=== PATIENT | female | born 1980 | race Caucasian/White ===

== ENCOUNTER 2017-06-29 13:08 | Emergency (ER) | payer SELFPAY ==
[~2017-06-29] VITALS: Ht 170.2 cm; Wt 106.3 kg
--- NOTE | 2017-06-29 13:24 | PHYS DOC ---
Past Medical History Past Medical History: No Pertinent History Past Surgical History: Cholecystectomy, Tubal ligation Additional Past Surgical Histo: bladder surgery Alcohol Use: None Drug Use: None Adult General Chief Complaint Chief Complaint: OTHER COMPLAINTS HPI HPI Patient is a 36 year old female who presents with numbness and tingling in her bilateral hands and feet in addition to some parts of her tongue and nose. She states he symptoms been going on for 2 weeks. She also states that occasionally after she stands up she feels lightheaded. She denies any falls, any focal weakness, nausea vomiting. She does state she has a toothache in the right lower jaw that's been there for about 2 weeks and she is waiting to afford enough money to go with the dizziness. She states she hasn't seen a doctor since 2014 when she has her tubes tied. She does not have a primary care physician. She does smoke a pack per day she's done that for the last 10 years or so. She denies alcohol use and any drug use. Review of Systems Review of Systems Constitutional: Denies fever or chills [] Eyes: Denies change in visual acuity, redness, or eye pain [] HENT: Denies nasal congestion or sore throat [] Respiratory: Denies cough or shortness of breath [] Cardiovascular: No additional information not addressed in HPI [] GI: Denies abdominal pain, nausea, vomiting, bloody stools or diarrhea [] : Denies dysuria or hematuria [] Musculoskeletal: Denies back pain or joint pain [] Integument: Denies rash or skin lesions [] Neurologic: Denies headache, focal weakness, positive for hand and feet numbness Endocrine: Denies polyuria or polydipsia [] Allergies Allergies Allergies Coded Allergies Type Severity Reaction Last Updated Verified Sulfa (Sulfonamide Antibiotics) Allergy Intermediate 09/13/14 Yes Physical Exam Physical Exam Constitutional: Well developed, well nourished, no acute distress, non-toxic appearance. [] HENT: Normocephalic, atraumatic, bilateral external ears normal, oropharynx moist, no oral exudates, nose normal. No trismus noted, multiple dental caries with some tenderness on the apical site of tooth #30 Eyes: PERRLA, EOMI, conjunctiva normal, no discharge. [] Neck: Normal range of motion, no tenderness, supple, no stridor. [] Cardiovascular:Heart rate regular rhythm, no murmur [] Lungs & Thorax: Bilateral breath sounds clear to auscultation [] Abdomen: Bowel sounds normal, soft, no tenderness, no masses, no pulsatile masses. [] Skin: Warm, dry, no erythema, no rash. [] Back: No tenderness, no CVA tenderness. [] Extremities: No tenderness, no cyanosis, no clubbing, ROM intact, no edema. [] Neurologic: Alert and oriented X 3, normal motor function, no focal deficits noted. Subjective numbness on the tips of the fingers and toes on bilateral hands and feet, tip of her tongue and the under side of her nose. Psychologic: Affect normal, judgement normal, mood normal. [] Current Patient Data Vital Signs Vital Signs Date Time Temp Pulse Resp B/P (MAP) Pulse Ox O2 Delivery O2 Flow Rate FiO2 06/29/17 14:30 88 12 113/78 (90) 97 Room Air 06/29/17 13:30 98.2 98.2 Lab Values Laboratory Tests Test 06/29/17 14:15 White Blood Count 9.8 x10^3/uL (4.0-11.0) Red Blood Count 4.85 x10^6/uL (3.50-5.40) Hemoglobin 14.8 g/dL (12.0-15.5) Hematocrit 44.0 % (36.0-47.0) Mean Corpuscular Volume 91 fL (79-100) Mean Corpuscular Hemoglobin 31 pg (25-35) Mean Corpuscular Hemoglobin Concent 34 g/dL (31-37) Red Cell Distribution Width 14.5 % (11.5-14.5) Platelet Count 234 x10^3/uL (140-400) Neutrophils (%) (Auto) 68 % (31-73) Lymphocytes (%) (Auto) 25 % (24-48) Monocytes (%) (Auto) 5 % (0-9) Eosinophils (%) (Auto) 2 % (0-3) Basophils (%) (Auto) 1 % (0-3) Neutrophils # (Auto) 6.6 x10^3uL (1.8-7.7) Lymphocytes # (Auto) 2.4 x10^3/uL (1.0-4.8) Monocytes # (Auto) 0.5 x10^3/uL (0.0-1.1) Eosinophils # (Auto) 0.2 x10^3/uL (0.0-0.7) Basophils # (Auto) 0.1 x10^3/uL (0.0-0.2) Urine Color Yellow Urine Clarity Clear Urine pH 5.5 Urine Specific [place] 1.020 Urine Protein Negative mg/dL (NEG-TRACE) Urine Glucose (UA) Negative mg/dL (NEG) Urine Ketones (Stick) Negative mg/dL (NEG) Urine Blood Negative (NEG) Urine Nitrite Negative (NEG) Urine Bilirubin Negative (NEG) Urine Urobilinogen Dipstick 0.2 mg/dL (0.2 mg/dL) Urine Leukocyte Esterase Negative (NEG) Urine RBC 0 /HPF (0-2) Urine WBC Occ /HPF (0-4) Urine Squamous Epithelial Cells Occ /LPF Urine Bacteria 0 /HPF (0-FEW) Urine Mucus Mod /LPF Sodium Level 137 mmol/L (136-145) Potassium Level 4.1 mmol/L (3.5-5.1) Chloride Level 105 mmol/L (98-107) Carbon Dioxide Level 26 mmol/L (21-32) Anion Gap 6 (6-14) Blood Urea Nitrogen 5 mg/dL (7-20) L Creatinine 0.6 mg/dL (0.6-1.0) Estimated GFR (Cockcroft-Gault) 114.4 Glucose Level 91 mg/dL (70-99) Calcium Level 9.2 mg/dL (8.5-10.1) Phosphorus Level 3.0 mg/dL (2.6-4.7) Magnesium Level 1.7 mg/dL (1.8-2.4) L Vitamin B12 Level 294 pg/mL (247-911) Serum Folate 6.49 ng/ml (3.2-20.0) Serum Test, Qualitative Negative (NEG) Laboratory Tests 06/29/17 14:15 Laboratory Tests 06/29/17 14:15 EKG EKG [] Radiology/Procedures Radiology/Procedures [facility] [address] [place], [place] [id number] IMAGING REPORT Signed PATIENT: SHERRELL CLARK ACCOUNT: [id number] : 1980 LOCATION: ER AGE: 36 SEX: F EXAM STATUS: REG ER ORD. PHYSICIAN: MARTA VELAZQUEZ MD REASON: bilateral hand and foot, with nose numbness PROCEDURE: CT HEAD WO CONTRAST CT head without contrast History: Bilateral hand, foot and nose numbness. Comparison: None. Procedure: Axial images are obtained of the head from the skull base through the vertex without IV contrast. Findings: The ventricles and sulci are normal for the patient's age. No mass-effect, intracranial mass, midline shift, hemorrhage or obvious acute infarction is identified. Basilar cisterns are patent. Bone windows demonstrate no significant calvarial abnormality. Small mucous changes cyst or polyp identified in the left sphenoid sinus.. Impression: 1. No acute intracranial process. PQRS Compliance Statement: One or more of the following individualized dose reduction techniques were utilized for this examination: 1. Automated exposure control 2. Adjustment of the mA and/or kV according to patient size 3. Use of iterative reconstruction technique DICTATED and SIGNED BY: ARELY HOLDEN MD DATE: 06/29/171401 CC: MARTA VELAZQUEZ MD; NO PCP ~ Impressions: neuropathy Dental pain Course & Med Decision Making Course & Med Decision Making Pertinent Labs and Imaging studies reviewed. (See chart for details) She had do not show any acute abnormality's. Labs including folic acid and B12 are nonacute. She's being discharged with Pen-Vee K for the next 7 days for her dental caries and a follow-up with neurology for her numbness. She is agreeable plan being discharged in stable condition this time. Dragon Disclaimer Dragon Disclaimer This electronic medical record was generated, in whole or in part, using a voice recognition dictation system. Departure Departure Impression: Primary Impression: Pain, dental Additional Impression: Peripheral neuropathy Disposition: 01 HOME, SELF-CARE Condition: STABLE Referrals: NO PCP (PCP) Patient Instructions: Dental Pain, [id number] Additional Instructions: You were seen today for the numbness of your fingers and toes. I do not see any reasons for this to be occurring and therefore you will need to follow-up with a neurologist. Please call Dr. Banegas's office and schedule follow-up appointment. He also being treated for your dental pain. He taken a bike's as directed for the next 7 days. You will need to follow-up with a dentist GREG[place]IA. Return ER if you have troubles swallowing, talking, you have high fevers or other concerns. Scripts Penicillin V Potassium (PENICILLIN V POTASSIUM) 500 Mg Tablet 1 TAB PO QID, #28 TAB Prov: MARTA VELAZQUEZ MD 06/29/17 Problem Qualifiers MARTA VELAZQUEZ MD Jun 29, 2017 13:24
--- NOTE | 2017-06-29 14:08 | RAD ---
CT head without contrast History: Bilateral hand, foot and nose numbness. Comparison: None. Procedure: Axial images are obtained of the head from the skull base through the vertex without IV contrast. Findings: The ventricles and sulci are normal for the patient's age. No mass-effect, intracranial mass, midline shift, hemorrhage or obvious acute infarction is identified. Basilar cisterns are patent. Bone windows demonstrate no significant calvarial abnormality. Small mucous changes cyst or polyp identified in the left sphenoid sinus.. Impression: 1. No acute intracranial process. PQRS Compliance Statement: One or more of the following individualized dose reduction techniques were utilized for this examination: 1. Automated exposure control 2. Adjustment of the mA and/or kV according to patient size 3. Use of iterative reconstruction technique
[2017-06-29 14:26] LABS: BASO # 0.1 x10^3/uL (0.0-0.2); BASO % 1 % (0-3); EOS % 2 % (0-3); HEMOGLOBIN 14.8 g/dL (12.0-15.5); LYMPH # 2.4 x10^3/uL (1.0-4.8); LYMPH % 25 % (24-48); MEAN CORPUSCULAR HEMOGLOBIN 31 pg (25-35); MEAN CORPUSCULAR HGB CONC 34 g/dL (31-37); MEAN CORPUSCULAR VOLUME 91 fL (79-100); MONO % 5 % (0-9); NEUT % 68 % (31-73); PLATELET COUNT 234 x10^3/uL (140-400); RED BLOOD COUNT 4.85 x10^6/uL (3.50-5.40); RED CELL DISTRIBUTION WIDTH 14.5 % (11.5-14.5); WHITE BLOOD COUNT 9.8 x10^3/uL (4.0-11.0)
[2017-06-29 14:28] LABS: BILIRUBIN,URINE NEGATIVE (NEG); GLUCOSE,URINE NEGATIVE (NEG); NITRITE,URINE NEGATIVE (NEG); PH,URINE 5.5; PROTEIN,URINE NEGATIVE (NEG-TRACE); UROBILINOGEN,URINE 0.2 mg/dL (0.2 mg/dL)
[2017-06-29 14:36] LABS: CALCIUM 9.2 mg/dL (8.5-10.1); CREATININE 0.6 mg/dL (0.6-1.0); GFR 114.4; POTASSIUM 4.1 mmol/L (3.5-5.1)
[2017-06-29 14:38] LABS: NEG OBC SER NEG; POS OBC SER POS
[2017-06-29 14:40] LABS: MAGNESIUM 1.7 mg/dL (1.8-2.4)
[2017-06-29 14:41] LABS: BACTERIA,URINE 0 /HPF (0-FEW); RBC,URINE 0 /HPF (0-2); WBC,URINE OCC /HPF (0-4)
[2017-06-29 14:42] LABS: SQUAMOUS EPITHELIAL CELL,UR OCC /LPF
[2017-06-29 14:53] LABS: FOLATE 6.49 ng/ml (3.2-20.0)
[2017-06-29 15:15] VITALS: BP 122/72
[2017-06-29] MEDS ORDERED: PENI500T PO (15:30)
== END 2017-06-29 15:35 | disposition home or self-care (01) ==
LOC: ER 13:08
DX: K02.9 Dental caries, unspecified (principal); G62.9 Polyneuropathy, unspecified; F17.200 Nicotine dependence, unspecified, uncomplicated; Z88.2 Allergy status to sulfonamides
CPT/HCPCS: 36415; 70450; 80048; 81001; 82607; 82746; 83735; 84100; 84703; 85025; 99285-25

== ENCOUNTER 2017-07-08 06:24 | Emergency (ER) | payer SELFPAY ==
[~2017-07-08 06:24] MED LIST: PENI500T PO
[2017-07-08 06:41] VITALS: BP 152/100
[2017-07-08] MEDS ORDERED: HYDR-2758 PO (07:00)
[2017-07-08] MEDS ORDERED: HYDROcodone/APAP 5/325MG 1 TAB TABLET PO ONE (07:00)
--- NOTE | 2017-07-08 07:00 | PHYS DOC ---
Past Medical History Past Medical History: Anxiety Past Surgical History: Cholecystectomy, Tubal ligation Additional Past Surgical Histo: bladder surgery Alcohol Use: None Drug Use: None Adult General Chief Complaint Chief Complaint: DENTAL PROBLEM HPI HPI 36-year-old female presenting to the emergency department today with pain in her tooth that is on the right back bottom tooth. It is moderate. Nonradiating sharp intermittent and without alleviating factors. She reports not taking ibuprofen or Tylenol previously. Otherwise she denies any tongue swelling drooling. She denies stridor. Review of systems is negative for fevers chills chest pain cough shortness of breath. All other review of systems is negative unless otherwise noted in history of present illness. ED course: 36-year-old female presenting to the emergency department today with dental pain. Patient is currently on penicillin. I recommended ibuprofen and Tylenol. I gave the patient oral Lortab in the emergency department to follow- up with the dentist in the next 2-3 days. Review of Systems Review of Systems SEE ABOVE. Current Medications Current Medications Current Medications Medications (Trade) Dose Ordered Sig/Xochitl Start Time Stop Time Status Last Admin Dose Admin Acetaminophen/ Hydrocodone Bitart (Lortab 5/325) 2 tab 1X ONCE 07/08/17 07:00 07/08/17 07:01 Allergies Allergies Allergies Coded Allergies Type Severity Reaction Last Updated Verified Sulfa (Sulfonamide Antibiotics) Allergy Intermediate 09/13/14 Yes Physical Exam Physical Exam SEE ABOVE Constitutional: Well developed, well nourished, no acute distress, non-toxic appearance. [] HENT: Normocephalic, atraumatic, bilateral external ears normal, oropharynx moist, no oral exudates, nose normal. [] Eyes: PERRLA, EOMI, conjunctiva normal, no discharge. Neck: Normal range of motion, no tenderness, supple, no stridor. [] Cardiovascular:Heart rate regular rhythm, no murmur [] Lungs & Thorax: Bilateral breath sounds clear to auscultation Abdomen: Bowel sounds normal, soft, no tenderness, no masses, no pulsatile masses. [] Skin: Warm, dry, no erythema, no rash. [] Back: No tenderness, no CVA tenderness. Extremities: No tenderness, no cyanosis, no clubbing, ROM intact, no edema. [] Neurologic: Alert and oriented X 3, normal motor function, normal sensory function, no focal deficits noted. Psychologic: Affect normal, judgement normal, mood normal. [] Current Patient Data Vital Signs Vital Signs Date Time Temp Pulse Resp B/P (MAP) Pulse Ox O2 Delivery O2 Flow Rate FiO2 07/08/17 06:41 99.0 110 20 98 Room Air 99.0 EKG EKG [] Radiology/Procedures Radiology/Procedures [] Course & Med Decision Making Course & Med Decision Making Pertinent Labs and Imaging studies reviewed. (See chart for details) [] Dragon Disclaimer Dragon Disclaimer This electronic medical record was generated, in whole or in part, using a voice recognition dictation system. Departure Departure Impression: Primary Impression: Pain, dental Disposition: HOME, SELF-CARE Condition: STABLE Referrals: NO PCP (PCP) Patient Instructions: Dental Pain Additional Instructions: Thank you for allowing us to participate in your care today. Followup with your dentist in 2-3 days. Call your Primary Doctor tomorrow and inform them of your visit today. If you do not have a primary care provider you can ask for a list of our primary care providers. Return to the emergency department you have any new or concerning findings. This should be evaluated by the primary care physician and any necessary consulting services for continued management within a few days after discharge. Return to emergency room if you have any new or concerning symptoms including but not limited to fever, chills, nausea, vomiting, intractable pain, any new rashes, chest pain, shortness of air, uncontrolled bleeding, difficulty breathing, and/or vision loss. You may have been prescribed medication that can change in your level of thinking and ability to operate machinery. These medications include hydrocodone and Ativan. Also, Benadryl has been known to do this as well. Be sure to check with your pharmacist and ask if the medications you've prescribed can affect your level of consciousness. I recommend not operating heavy machinery or driving while on medication such as these. Scripts Hydrocodone Bit/Acetaminophen (HYDROCODONE-APAP 5-325 ) 1 Each Tablet 1 TAB PO PRN Q6HRS Y for PAIN, #15 TAB 0 Refills Be careful as this medication may cause you to be drowsy or tired. Do not drive on this medication. Prov: LATA RODRIGUEZ MD 07/08/17 LATA RODRIGUEZ MD Jul 08, 2017 07:00
== END 2017-07-08 07:08 | disposition home or self-care (01) ==
LOC: ER 06:24
DX: K08.89 Other specified disorders of teeth and supporting structures (principal); F41.9 Anxiety disorder, unspecified; Z88.2 Allergy status to sulfonamides; Z90.49 Acquired absence of other specified parts of digestive tract
CPT/HCPCS: 99283

== ENCOUNTER 2019-09-03 20:33 | Emergency (ER) | payer SELFPAY ==
[~2019-09-03] VITALS: Ht 170.2 cm; Wt 106.1 kg
[~2019-09-03 20:33] MED LIST changes: +HYDR-2761 PO
[2019-09-03 21:00] VITALS: BP 127/85
[2019-09-03] MEDS ORDERED: AMOX875T PO (21:44)
--- NOTE | 2019-09-03 21:45 | PHYS DOC ---
Past Medical History Past Medical History: Anxiety (LEANNA POOLE APRN) Past Surgical History: Cholecystectomy, Tubal ligation, Other Additional Past Surgical Histo: BLADDER SURGERY (LEANNA POOLE APRN) Alcohol Use: None Drug Use: None (LEANNA POOLE APRN) Attending Signature I have participated in the care of this patient and I have reviewed and agree with all pertinent clinical information above including history, exam, and recommendations. (SHANNON MURRY MD) Adult General Chief Complaint Chief Complaint: EARACHE/EAR PAIN HPI HPI Patient is a 39 year old female who presents to the emergency department with complaints of left ear pain, decreased hearing, and ringing in her left ear the last 4 days. Patient also complains of a sore throat, nasal congestion, and frequent throat clearing. She reports that she has had a dry cough recently. Patient denies any fever, shortness of breath, chest pain, palpitations, headache, nausea, vomiting, diarrhea, abdominal pain, body aches, or fatigue. She states she smokes about a pack of cigarettes a day. Currently, she rates her discomfort a 7 out of 10 on the pain scale, there are no alleviating factors, her sore throat increases with swallowing. Patient denies any difficulty swallowing fluids or stridor. All other ROS is neg unless otherwise noted in HPI. (LEANNA POOLE APRN) Review of Systems Review of Systems See Above (LEANNA POOLE APRN) Allergies Allergies Allergies Coded Allergies Type Severity Reaction Last Updated Verified Sulfa (Sulfonamide Antibiotics) Allergy Intermediate 09/13/14 Yes (SHANNON MURRY MD) Physical Exam Physical Exam See Above Constitutional: Well developed, well nourished, no acute distress, non-toxic appearance. [] HENT: Normocephalic, atraumatic, bilateral external ears normal, left TM appears infected use erythema and no perforation, right TM normal, cobblestone appearance of posterior pharynx, oropharynx moist, no oral exudates, nose congested Eyes: PERRLA, EOMI, conjunctiva normal, no discharge. [] Neck: Normal range of motion, no tenderness, supple, no stridor. [] Cardiovascular:Heart rate regular rhythm, no murmur [] Lungs & Thorax: Bilateral breath sounds clear to auscultation [] Skin: Warm, dry, no erythema, no rash. [] Back: No tenderness Extremities: No cyanosis, ROM intact, no edema. [] Neurologic: Alert and oriented X 3, no focal deficits noted. [] Psychologic: Affect normal, judgement normal, mood normal. [] (LEANNA POOLE APRN) Current Patient Data Vital Signs Vital Signs Date Time Temp Pulse Resp B/P (MAP) Pulse Ox O2 Delivery O2 Flow Rate FiO2 09/03/19 21:00 98.1 97 16 127/85 (99) 97 Room Air 98.1 (SHANNON MURRY MD) EKG EKG [] (LEANNA POOLE APRN) Radiology/Procedures Radiology/Procedures [] (LEANNA POOLE APRN) Course & Med Decision Making Course & Med Decision Making Pertinent Labs and Imaging studies reviewed. (See chart for details) [] (LEANNA POOLE APRN) Dragon Disclaimer Dragon Disclaimer This electronic medical record was generated, in whole or in part, using a voice recognition dictation system. (LEANNA POOLE APRN) Departure Departure Impression: Primary Impression: Left otitis media with effusion Additional Impression: URI (upper respiratory infection) Disposition: 01 HOME, SELF-CARE Condition: STABLE Referrals: NO PCP (PCP) Patient Instructions: Otitis Media, Adult Additional Instructions: Fill prescription(s) and use as directed. Recommend use of a Cool mist humidifier in room at bedtime. Alternate Tylenol or ibuprofen as needed for pain/fever. Increase clear fluids. Avoid airway triggers such as smoke, fragrance, dust, and pollen. May take [id number] cough suppressants as needed. Follow-up with your primary care doctor in 1-2 days, return to the ER if symptoms worsen. Scripts Amoxicillin (AMOXICILLIN) 875 Mg Tablet 1 TAB PO BID, #20 TAB 0 Refills Prov: LEANNA POOLE APRN 09/03/19 Problem Qualifiers Additional Impression: URI (upper respiratory infection) URI type: unspecified URI Qualified Codes: J06.9 - Acute upper respiratory infection, unspecified LEANNA POOLE APRN Sep 03, 2019 21:45 SHANNON MURRY MD Sep 04, 2019 03:57
== END 2019-09-03 22:03 | disposition home or self-care (01) ==
LOC: ER 20:33
DX: H65.92 Unspecified nonsuppurative otitis media, left ear (principal); J06.9 Acute upper respiratory infection, unspecified; F41.9 Anxiety disorder, unspecified; Z90.49 Acquired absence of other specified parts of digestive tract; Z98.51 Tubal ligation status; Z98.890 Other specified postprocedural states; Z88.2 Allergy status to sulfonamides
CPT/HCPCS: 99283

== ENCOUNTER 2020-01-23 03:26 | Emergency (ER) | payer SELFPAY ==
[~2020-01-23] VITALS: Ht 170.2 cm; Wt 104.6 kg
[~2020-01-23 03:26] MED LIST changes: +AMOX875T PO
[2020-01-23] MEDS ORDERED: LORazepam 0.5 MG TABLET PO ONE (04:15)
--- NOTE | 2020-01-23 04:26 | PHYS DOC ---
Past Medical History Past Medical History: Anxiety Past Surgical History: Cholecystectomy, Tubal ligation, Other Additional Past Surgical Histo: BLADDER SURGERY Smoking Status: Current Every Day Smoker Alcohol Use: None Drug Use: None General Adult EDM: Chief Complaint: ANXIETY/PANIC ATTACK HPI: HPI: Patient is a 39 year old [f__sex] who presents with [] Patient is a 39-year-old female with history of anxiety who reports frequent panic attacks and increased background anxiety due to Coronavirus pandemic presents with acute panic episode. Patient states she was having sexual intercourse she became short of breath than anxious that her shortness breath may be related to the coronavirus precipitating greater panic attack. Patient states she tried calming herself and usually her usual techniques which were unsuccessful. Symptom onset was 2 hours ago. Reports chest tightness, sharp pain in her right rib cage. No fever chills, nausea vomiting sweats. No leg pain or swelling. No other acute symptoms or complaints. Review of Systems: Review of Systems: ROS as per HPI Heart Score: Risk Factors: Risk Factors: DM, Current or recent (<one month) smoker, HTN, HLP, family history of CAD, obesity. Risk Scores: Score 0 - 3: 2.5% MACE over next 6 weeks - Discharge Home Score 4 - 6: 20.3% MACE over next 6 weeks - Admit for Clinical Observation Score 7 - 10: 72.7% MACE over next 6 weeks - Early Invasive Strategies Current Medications: Current Medications Medications (Trade) Dose Ordered Sig/Xochitl Start Time Stop Time Status Last Admin Dose Admin Lorazepam (Ativan) 2 mg 1X ONCE 01/23/20 04:15 01/23/20 04:16 01/23/20 04:02 2 MG Allergies: Allergies: Allergies Coded Allergies Type Severity Reaction Last Updated Verified Sulfa (Sulfonamide Antibiotics) Allergy Intermediate 09/13/14 Yes Physical Exam: PE: Constitutional: Well developed, well nourished, no acute distress, non-toxic appearance. [] HENT: Normocephalic, atraumatic, bilateral external ears normal, oropharynx moist, no oral exudates, nose normal. [] Eyes: PERRLA, EOMI, conjunctiva normal, no discharge. [] Neck: Normal range of motion, no tenderness, supple, no stridor. [] Cardiovascular:Heart rate regular rhythm, no murmur [] Lungs & Thorax: Bilateral breath sounds clear to auscultation [] Abdomen: Bowel sounds normal, soft, no tenderness. [] Skin: Warm, dry, no erythema, no rash. [] Back: No tenderness, no CVA tenderness. [] Extremities: No tenderness, no cyanosis, no clubbing, ROM intact, no edema. [] Neurologic: Alert and oriented X 3, normal motor function, normal sensory function, no focal deficits noted. [] Psychologic: Affect anxious, judgement normal, mood normal. [] Current Patient Data: Vital Signs: Vital Signs Date Time Temp Pulse Resp B/P (MAP) Pulse Ox O2 Delivery O2 Flow Rate FiO2 01/23/20 03:40 97.4 92 15 141/79 (99) 98 Room Air 97.4 EKG: EKG: [] Radiology/Procedures: Radiology/Procedures: [] Course & Med Decision Making: Course & Med Decision Making Pertinent Labs and Imaging studies reviewed. (See chart for details) [Ativan given for panic episode. Symptoms improved with tx. Patient reassured. Follow up with PCP. Return precautions reviewed. ] Charles Disclaimer: Charles Disclaimer: This electronic medical record was generated, in whole or in part, using a voice recognition dictation system. Departure Departure Impression: Primary Impression: Anxiety Disposition: 01 HOME, SELF-CARE Condition: STABLE Referrals: NO PCP (PCP) Patient Instructions: Anxiety and Panic Attacks, [id number] Additional Instructions: Please go home and rest. Continue home medications and biofeedback techniques. Follow up with your PCP for re-evaluation. Return to the ED if new or worsening symptoms. FABIAN FRASER DO Jan 23, 2020 04:26
[2020-01-23 04:49] VITALS: BP 147/79
== END 2020-01-23 05:01 | disposition home or self-care (01) ==
LOC: ER 03:26
DX: F41.9 Anxiety disorder, unspecified (principal); R06.02 Shortness of breath; R07.89 Other chest pain; F17.200 Nicotine dependence, unspecified, uncomplicated; Z88.2 Allergy status to sulfonamides
CPT/HCPCS: 99283